=== PATIENT | female | born 1990 | race African-American/Black ===

== ENCOUNTER 2016-10-26 14:40 | Emergency (ER) | payer MEDICAID ==
[~2016-10-26] VITALS: Ht 152.4 cm; Wt 68.6 kg
[2016-10-26 15:36] LABS: BLOOD UREA NITROGEN 9 mg/dL (7-18)
[2016-10-26 15:42] LABS: ASPARTATE AMINO TRANSFERASE 29 U/L (15-37)
[2016-10-26 16:19] VITALS: BP 138/98
== END 2016-10-26 16:32 | disposition home or self-care (01) ==
LOC: ED 14:58
DX: R10.84 Generalized abdominal pain (principal)
CPT/HCPCS: 36415; 80053; 81003; 83690; 84703; 85025; 99284

== ENCOUNTER 2016-12-09 13:08 | Emergency (ER) | payer MEDICAID, OTHER ==
[~2016-12-09] VITALS: Ht 152.4 cm; Wt 66.7 kg
[2016-12-09 13:52] LABS: PATH.CAST-FLAG NOT PRESENT; SPERM-FLAG NOT PRESENT; SRC-FLAG NOT PRESENT; XTAL-FLAG NOT PRESENT; YLC-FLAG NOT PRESENT
[2016-12-09 14:11] LABS: HCG UR OBC PASS
[2016-12-09] MEDS ORDERED: AZITHROMYCIN 500 MG TABLET PO ONE (16:30)
[2016-12-09] MEDS ORDERED: CEFTRIAXONE 1,000 MG IM ONE (16:30)
[2016-12-09] MEDS ORDERED: AZITHROMYCIN 500 MG TABLET ONE (16:36)
[2016-12-09] MEDS ORDERED: CEFTRIAXONE 250 MG ONE (16:37)
[2016-12-09 16:47] VITALS: BP 149/107
== END 2016-12-09 16:57 | disposition home or self-care (01) ==
LOC: ED 14:16
DX: A59.09 Other urogenital trichomoniasis (principal)
CPT/HCPCS: 76830; 81001; 81025; 87086; 87210; 87491; 87591; 87808; 96372; 99285; J0696